=== PATIENT | male | born 1995 | race Caucasian/White ===

== ENCOUNTER 2021-09-12 20:43 | Emergency (ER) | payer SELFPAY ==
[~2021-09-12] VITALS: Ht 167.6 cm; Wt 72.7 kg
[2021-09-12] MEDS ORDERED: MUPI1OIN5 TP (21:11)
[2021-09-12] MEDS ORDERED: AZIT250T9 PO (21:11)
[2021-09-12] MEDS ORDERED: DOXY-354 PO (21:11)
[2021-09-12 21:45] VITALS: BP 132/74
== END 2021-09-12 22:26 | disposition home or self-care (01) ==
LOC: EMS 20:46
DX: L02.522 Furuncle left hand (principal); F12.90 Cannabis use, unspecified, uncomplicated; F17.210 Nicotine dependence, cigarettes, uncomplicated
CPT/HCPCS: 99283; Z7502

== ENCOUNTER 2024-02-09 20:32 | Inpatient (IN) | payer MEDICARE ==
[~2024-02-09] VITALS: Ht 170.2 cm; Wt 75.0 kg
[~2024-02-09 20:32] MED LIST: AZIT250T9 PO; DOXY-354 PO; MUPI1OIN5 TP
[2024-02-09 20:46] VITALS: TEMP 98.1
[2024-02-09] MEDS: SODIUM CHLORIDE 0.9% 1,000 ML IV ONE ×2 (21:02→22:49)
[2024-02-09 21:25] LABS: BASOPHILS % (AUTO) 0.3 % (0.0-2.0); EOSINOPHILS % (AUTO) 0.9 % (1.0-6.0); HEMATOCRIT 43.9 % (41-53); HEMOGLOBIN 13.7 g/dL (13.5-17.5); LYMPHOCYTES % (AUTO) 17.3 % (22.0-44.0); MEAN CORPUSCULAR HEMOGLOBIN 23.6 pg (26.0-34.0); MEAN CORPUSCULAR HGB CONC 31.2 G/dL (31.0-37.0); MEAN CORPUSCULAR VOLUME 76 fL (80-100); MONOCYTES # (AUTO) 0.5 K/uL (0.1-1.0); MONOCYTES % (AUTO) 4.2 % (2.0-9.0); NEUTROPHILS # (AUTO) 8.9 K/uL (1.8-7.7); NEUTROPHILS % (AUTO) 77.3 % (40.0-70.0); PLATELET COUNT (AUTO) 256 K/uL (150-450); WHITE BLOOD COUNT (AUTO) 11.5 K/uL (4.5-11.0)
[2024-02-09 21:38] LABS: ALBUMIN 3.9 g/dL (3.4-5.0); BILIRUBIN,DIRECT 0.1 mg/dL (0.00-0.20); BILIRUBIN,TOTAL 0.3 mg/dL (0.1-1.0); TOTAL PROTEIN, SERUM 7.9 g/dL (6.4-8.2)
[2024-02-09 21:40] LABS: ALCOHOL, BLOOD (SERUM) < 3 mg/dL (0-10); RBC MORPHOLOGY COMMENT ABNORMAL RBC MORPH
[2024-02-09 21:44] LABS: TROPONIN I-HIGH SENSITIVITY Less Than 4 ng/L (<76)
[2024-02-09 21:56] LABS: B-TYPE NATRIURETIC PEPTIDE < 5 pg/mL (0-100)
[2024-02-09 21:57] LABS: ANION GAP 13 mmol/L (8-16); CALCIUM, TOTAL 8.6 mg/dL (8.8-10.5); CARBON DIOXIDE 24 mmol/L (22-29); CHLORIDE 102 mmol/L (98-107); CREATININE 0.84 mg/dL (0.60-1.30); GLOMERULAR FILTR. RATE CALC > 60 mL/min (>60); GLUCOSE,RANDOM 91 mg/dL (70-110); POTASSIUM 3.9 mmol/L (3.5-5.1); SODIUM SERUM 139 mmol/L (136-145); UREA NITROGEN, BLOOD 21 mg/dL (7-18)
[2024-02-09 22:06] LABS: APPEARANCE,URINE CLEAR (CLEAR); BILIRUBIN,URINE NEGATIVE (NEGATIVE); COLOR,URINE YELLOW (YELLOW); GLUCOSE, URINE (UA) NEGATIVE (NEGATIVE); LEUKOCYTE ESTERASE ,URINE NEGATIVE (NEGATIVE); NITRATE,URINE NEGATIVE (NEGATIVE); OCCULT BLOOD,URINE NEGATIVE (NEGATIVE); PH,URINE 5.5 (5.0-8.0); PH,URINE DRUG SCREEN 5.5 (5.0-8.0); PROTEIN,URINE TRACE mg/dL (NEGATIVE); SPECIFIC GRAVITIY, URINE 1.037 (1.003-1.030); UROBILINOGEN,URINE <=1.0 mg/dL (<=1.0)
[2024-02-09] MEDS ORDERED: MAGNESIUM HYDROXIDE SUSPENSION 30 ML UDCUP PO PRN (22:15)
[2024-02-09] MEDS ORDERED: ACETAMINOPHEN 325 MG TABLET PO PRN (22:15)
[2024-02-09] MEDS ORDERED: ONDANSETRON HCL 4 MG/2 ML VIAL IVP PRN (22:15)
[2024-02-09 22:22] LABS: CREATINE KINASE, TOTAL ONLY 354 U/L (39-308)
[2024-02-09 22:29] LABS: ALCOHOL, URINE DRUG SCREEN NEGATIVE (NEGATIVE); AMPHET/METH SCREEN,URINE POSITIVE (NEGATIVE); BARBITURATE SCREEN, URINE NEGATIVE (NEGATIVE); BENZODIAZEPINES SCREEN,URINE NEGATIVE (NEGATIVE); CANNABINOID SCREEN,URINE NEGATIVE (NEGATIVE); COCAINE SCREEN,URINE NEGATIVE (NEGATIVE); METHADONE SCREEN, URINE NEGATIVE (NEGATIVE); OPIATE SCREEN,URINE NEGATIVE (NEGATIVE); PHENCYCLIDINE SCREEN,URINE NEGATIVE (NEGATIVE)
[2024-02-09 23:23] VITALS: BP 126/82; PULSE 96; RESP 16; O2SAT 100
[2024-02-10] MEDS ORDERED: FAMOTIDINE 20 MG TABLET PO SCH (09:00)
== END 2024-02-10 17:10 | disposition left against medical advice (07) | DRG 917 ==
LOC: EMS 20:32 → EDH 22:16
PROVIDERS: ADMIT Internal Medicine; ATTEND Internal Medicine
DX: T40.2X1A Poisoning by other opioids, accidental (unintentional), initial encounter (principal); G92.9 Unspecified toxic encephalopathy; F15.90 Other stimulant use, unspecified, uncomplicated; Z87.891 Personal history of nicotine dependence; Y92.89 Other specified places as the place of occurrence of the external cause; Z53.29 Procedure and treatment not carried out because of patient's decision for other reasons
CPT/HCPCS: 70450; 71045; 72125; 80048; 80076; 80307; 82140; 82550; 83880; 84484; 85025; 93005; 99291; G0378; G0480; 36415-L1; 36415-TC

== ENCOUNTER 2025-02-02 13:15 | Inpatient (IN) | payer BC, MEDICAID ==
[~2025-02-02] VITALS: Ht 167.6 cm; Wt 66.7 kg
[2025-02-02 14:44] LABS: PLATELET COUNT (AUTO) 211 K/uL (150-450); RED BLOOD CELL COUNT(AUTO) 5.41 MIL/uL (4.50-5.90); RED CELL DISTRIBUTION WIDTH 15.0 % (11.5-14.5); WHITE BLOOD COUNT (AUTO) 9.0 K/uL (4.5-11.0)
[2025-02-02 14:46] LABS: RBC MORPHOLOGY COMMENT ABNORMAL RBC MORPH
[2025-02-02 14:47] LABS: CALCIUM, TOTAL 8.4 mg/dL (8.8-10.5); CREATININE 1.24 mg/dL (0.60-1.30); GLOMERULAR FILTR. RATE CALC > 60 mL/min (>60); GLUCOSE,RANDOM 69 mg/dL (70-110); SODIUM SERUM 138 mmol/L (136-145); UREA NITROGEN, BLOOD 21 mg/dL (7-18)
[2025-02-02 15:00] LABS: COVID AG,FIA SOURCE NASAL SWAB
[2025-02-02 15:33] LABS: SARS-COV2 (COVID) ANTIGEN,FIA Negative (Negative)
[2025-02-02] MEDS: GABAPENTIN 300 MG CAPSULE PO SCH (16:20)
[2025-02-02 17:57] LABS: PH,URINE DRUG SCREEN 6.0 (5.0-8.0)
[2025-02-02 18:13] LABS: ALCOHOL, URINE DRUG SCREEN NEGATIVE (NEGATIVE); AMPHET/METH SCREEN,URINE POSITIVE (NEGATIVE); BARBITURATE SCREEN, URINE NEGATIVE (NEGATIVE); CANNABINOID SCREEN,URINE POSITIVE (NEGATIVE); COCAINE SCREEN,URINE NEGATIVE (NEGATIVE); METHADONE SCREEN, URINE NEGATIVE (NEGATIVE)
[2025-02-02] MEDS: MELATONIN 5 MG TABLET PO SCH (20:14)
[2025-02-02 21:12] VITALS: O2SAT 97
[2025-02-02 21:45] VITALS: BP 120/78; PULSE 77; RESP 17; TEMP 98.5; O2SAT 95
[2025-02-02] MEDS: ZOLPIDEM TARTRATE 10 MG TABLET PO PRN (22:14)
[2025-02-02] MEDS: OLANZapine 10 MG RAPDIS TABLET PO SCH (23:00)
[2025-02-02] MEDS: DIVALPROEX SODIUM 500 MG DR TABLET PO SCH (23:00)
[2025-02-03] MEDS ORDERED: ACETAMINOPHEN 325 MG TABLET PO PRN (06:15)
[2025-02-03] MEDS ORDERED: MAG HYDROX/ALUMINUM HYD/SIMETH ES 30 ML SUSPENSION UDCUP PO PRN (06:15)
[2025-02-03] MEDS ORDERED: ONDANSETRON 4 MG TABLET PO PRN (06:15)
[2025-02-03] MEDS ORDERED: PETROLATUM,WHITE 28 GM JELLY TP PRN (06:15)
[2025-02-03] MEDS ORDERED: BENZOCAINE/MENTHOL [CEPACOL] LOZENGE PO PRN (06:15)
[2025-02-03] MEDS ORDERED: MAGNESIUM HYDROXIDE SUSPENSION 30 ML UDCUP PO PRN (06:15)
[2025-02-03] MEDS ORDERED: OMEPRAZOLE 20 MG CAPSULE PO PRN (06:15)
[2025-02-03] MEDS ORDERED: BACITRACIN 28 GM OINTMENT TP PRN (06:15)
[2025-02-03] MEDS ORDERED: ALBUTEROL SULFATE HFA 90 MCG/PUFF 8 GM INHALER IH PRN (06:15)
[2025-02-03] MEDS ORDERED: LOPERAMIDE HCL 2 MG CAPSULE PO PRN (06:15)
[2025-02-03] MEDS ORDERED: DOCUSATE SODIUM 100 MG CAPSULE PO PRN (06:15)
[2025-02-03 08:02] VITALS: BP 116/70; PULSE 82; RESP 15; TEMP 98.5; O2SAT 98
[2025-02-03 08:42] VITALS: RESP 18
[2025-02-03] MEDS: IBUPROFEN 600 MG TABLET PO PRN (08:57)
[2025-02-03 09:25] LABS: CHOL/HDL RATIO 2.4 (4.2-7.3); LDL CHOL (CALC.) 54.0 mg/dL (0-130)
[2025-02-03 09:57] VITALS: RESP 18
[2025-02-04 00:01] VITALS: RESP 18
[2025-02-04 08:07] VITALS: BP 112/60; PULSE 86; RESP 15; TEMP 97.9; O2SAT 100
[2025-02-04 08:39] LABS: PLATELET COUNT (AUTO) 204 K/uL (150-450); RED BLOOD CELL COUNT(AUTO) 5.02 MIL/uL (4.50-5.90); RED CELL DISTRIBUTION WIDTH 15.5 % (11.5-14.5); WHITE BLOOD COUNT (AUTO) 6.6 K/uL (4.5-11.0)
[2025-02-04 09:08] LABS: ASPARTATE AMINOTRANSFERASE 44 U/L (15-37); CALCIUM, TOTAL 8.2 mg/dL (8.8-10.5); CHOL/HDL RATIO 2.5 (4.2-7.3); CREATININE 0.72 mg/dL (0.60-1.30); GLOMERULAR FILTR. RATE CALC > 60 mL/min (>60); GLUCOSE,RANDOM 126 mg/dL (70-110); LDL CHOL (CALC.) 53 mg/dL (0-130); PHOSPHORUS 2.4 mg/dL (2.5-4.9); SODIUM SERUM 140 mmol/L (136-145); TOTAL PROTEIN, SERUM 6.5 g/dL (6.4-8.2); UREA NITROGEN, BLOOD 9 mg/dL (7-18)
[2025-02-04 11:18] LABS: RBC MORPHOLOGY COMMENT ABNORMAL RBC MORPH
[2025-02-04 20:05] VITALS: BP 113/58; PULSE 91; RESP 17; TEMP 98.3; O2SAT 97
[2025-02-05] MEDS: INFLUENZA VIRUS VACCINE TVS (6MO+) 2025-26/PF 45 MCG/0.5 ML SYRINGE IM. ONE (06:00)
[2025-02-05 08:29] VITALS: BP 131/60; PULSE 85; RESP 17; TEMP 98; O2SAT 99
[2025-02-05 20:14] VITALS: BP 150/65; PULSE 78; RESP 17; TEMP 97.2; O2SAT 100
[2025-02-06 08:01] VITALS: BP 128/86; PULSE 95; RESP 18; TEMP 98; O2SAT 100
[2025-02-06 20:13] VITALS: BP 131/86; PULSE 96; RESP 18; TEMP 97.4; O2SAT 99
[2025-02-07 08:03] VITALS: BP 126/85; PULSE 84; RESP 18; TEMP 98.2; O2SAT 100
[2025-02-07] MEDS ORDERED: DIVA-112 PO (08:31)
[2025-02-07] MEDS ORDERED: OLAN10TA26 PO (08:32)
[2025-02-07] MEDS ORDERED: MELA10TA PO (08:33)
[2025-02-07] MEDS ORDERED: GABA-1181 PO (08:34)
== END 2025-02-07 15:49 | disposition home or self-care (01) | DRG 885 ==
LOC: EMS 13:15 → B3A 21:13
PROVIDERS: ADMIT Psychiatry & Neurology Psychiatry; ATTEND Psychiatry & Neurology Psychiatry
PROC: GZHZZZZ Group Psychotherapy (ICD-10-PCS; principal; 2025-02-07)
DX: F25.0 Schizoaffective disorder, bipolar type (principal); F12.90 Cannabis use, unspecified, uncomplicated; F15.10 Other stimulant abuse, uncomplicated; F41.9 Anxiety disorder, unspecified; F43.10 Post-traumatic stress disorder, unspecified; G47.00 Insomnia, unspecified; Z53.29 Procedure and treatment not carried out because of patient's decision for other reasons; Z20.822 Contact with and (suspected) exposure to COVID-19; Z60.8 Other problems related to social environment; Z87.891 Personal history of nicotine dependence; Z79.899 Other long term (current) drug therapy; Z56.0 Unemployment, unspecified
CPT/HCPCS: 80048; 80053; 80061; 80307; 83036; 83735; 84100; 84443; 85025; 90686; 99285; G0480